=== PATIENT | female | born 1985 | race Caucasian/White ===

== ENCOUNTER 2019-05-29 16:41 | Emergency (ER) | payer BC, SELFPAY ==
[2019-05-29 16:43] VITALS: BP 167/107; PULSE 72; RESP 17; TEMP 36.6; O2SAT 99; BMI 40.1
--- NOTE | 2019-05-29 17:28 | ED_ITS ---
Entered by Anahi Davis, acting as scribe for Yandel Andradeud May 29, 2019 16:41 HPI - Abdominal Pain General: Chief Complaint: Abdominal Pain Stated Complaint: abd pain Time Seen by Provider: 05/29/19 17:15 Source: patient Mode of arrival: ambulatory Limitations: no limitations History of Present Illness: HPI narrative: 34 yo Female presents to ED with complaint of right upper quadrant abdominal pain. Pt states that this started about 3 days ago. Pt states she also has right flank pain. Pt states that the last time she ate or drank anything was about 10:40 today. She at a hotdog at school. MD elicited complaint: abdominal pain and flank pain Pertinent past history: none Onset (ago): day(s) (3) Pain Consistency: intermittent Location: RUQ and R flank Pain scale (0-10): 9 Radiation: back Migration to: no migration Exacerbating factors: nothing Relieving factors: nothing Associated Symptoms: Denies chills, diarrhea, dysuria, fever(s), heartburn, nausea and vomiting Review of Systems General: Reports: 10 or more systems reviewed and unremarkable except in HPI and below Const: Denies: fever or chills Eyes: Denies: change in vision, blurry vision or blind spots ENMT: Denies: throat pain, painful swallowing, hoarseness or mouth pain Card: Denies: chest pain, palpitations, irregular heart rhythm or swelling of feet/ankles Resp: Denies: shortness of breath, productive cough or non-productive cough GI: Reports: abdominal pain; Denies: nausea, vomiting, heartburn/indigestion or diarrhea : Reports: flank pain; Denies: difficulty urinating, painful urination, urinary frequency, urinary urgency or decreased urine ouput Musc: Reports: back pain; Denies: neck pain, extremity pain or extremity swelling Skin/Breast: Denies: rash, itching or redness Neuro: Denies: headache, numbness in extremities or weakness in extremities Endo: Denies: excessive urination, excessive thirst or tired all the time PFSH ED PFSH: Statuses (acute, chronic, etc) shown below reflect problem list status as previously entered and may not be historically accurate Social History Smoking and tobacco status: never smoked Physical Exam Const: COMMON NORMALS: average body habitus, oriented x3, no limitations, healthy appearing, alert and well nourished; apparent distress GENERAL APPEARANCE: in distress HENMT: COMMON NORMALS: normocephalic, head/scalp atraumatic, hearing grossly normal bilaterally, external ears normal, EAC's normal, TM's normal bilaterally, external nose normal, nasal mucous membranes and turbinates normal, moist oral mucous membranes, oropharynx normal, dentition normal and gingiva normal HEAD & SCALP: normocephalic and atraumatic NOSE: external nose normal and nasal mucous membranes and turbinates normal EXTERNAL EAR: Yes external ears normal EXTERNAL AUDITORY CANAL: EAC's normal TYMPANIC MEMBRANE: TM's normal bilaterally Eye: COMMON NORMALS: PERRL, EOMs intact bilaterally, conjunctivae normal, no scleral icterus, no papilledema, normal visual diaz by confrontation and fundi normal bilaterally CONJUNCTIVA: Yes conjunctivae normal PUPIL: Yes PERRL DIRECT OPHTHALMOSCOPY: Yes no papilledema and Yes fundi normal bilaterally Neck/C-Spine: COMMON NORMALS: full ROM, no lymphadenopathy, supple, no meningeal signs, no JVD, thyroid normal and no carotid bruits THYROID: thyroid normal Chest: COMMONS NORMALS: inspection of chest normal and palpation of chest normal Resp: COMMON NORMALS: normal respiratory effort, no retractions, no use of accessory muscles, clear to auscultation bilaterally and percussion normal AUSCULTATION: clear to auscultation bilaterally PERCUSSION: percussion normal Cardio: COMMON NORMALS: no JVD, regular rate, regular rhythm, S1 normal heart sound, S2 normal heart sound, no gallops, no clicks, no murmurs, no rub and p eripheral pulses 2+ throughout RATE: regular rate RHYTHM: regular rhythm HEART SOUNDS: S1 normal and S2 normal PERIPHERAL PULSES: pulses 2+ throughout GI: COMMON NORMALS: normal to inspection, nondistended, normoactive bowel sounds, soft to palpation, no hepatosplenomegaly, no masses and no bruits; negative for non-tender PALPATION: Yes soft, Yes tender Details: RUQ and Yes no hepatosplenomegaly : COMMON NORMALS: Yes no CVA tenderness BLADDER/KIDNEY EXAM: Yes no CVA tenderness Back/Pelvis: COMMON NORMALS: no CVA tenderness, thoracic and lumbar spine normal to inspection, no thoracic nor lumbar tenderness, thoraco-lumbar ROM normal and straight leg raise negative bilaterally Extremity: COMMON NORMALS: normal to inspection, full ROM, normal capillary refill, no joint enlargement, no clubbing, cyanosis or edema, no calf tenderness and no pedal edema Neuro: COMMON NORMALS: oriented x3 SENSORIUM/ORIENTATION: Yes alert MENI NGEAL SIGNS: Yes no meningeal signs Skin: COMMON NORMALS: no rashes or lesions noted, no wounds, skin turgor n ormal, no jaundice, no petechiae and no mottling GENERAL SKIN EXAM: no rashes or lesions noted and turgor normal Course Vital Signs: Vital signs: Vital Signs Temperature 97.8 F 05/29/19 16:43 Pulse Rate 72 05/29/19 16:43 Respiratory Rate 17 05/29/19 16:43 Blood Pressure 167/107 05/29/19 16:43 Pulse Oximetry 99 05/29/19 16:43 MDM - Abdominal Pain Lab Data: Labs: Lab Results 05/29/19 05/29/19 Range/Units 17:54 17:54 WBC 13.9 H (4.0-10.0) 10^3/ uL RBC 4.55 (4.1-5.3) 10^6/u L Hgb 13.0 (11.5-15.3) g/dL Hct 40.9 (37.0-47.0) % MCV 89.9 (81-99) fL MCH 28.6 (28.0-34.0) pg MCHC 31.8 (30.0-36.0) g/dL RDW 12.0 L (12.1-15.1) % Plt Count 253 (130-400) 10^3/c mm MPV 11.0 H (7.4-10.4) fL Neut % (Auto) 77.1 % Lymph % (Auto) 15.1 % [place] % (Auto) 3.9 % Eos % (Auto) 3.3 % Baso % (Auto) 0.4 % Neut # (Auto) 10.7 H (1.8-7.7) 10^3/u L Lymph # (Auto) 2.1 (0.8-4.8) 10^3/u L [place] # (Auto) 0.5 (0.2-0.9) 10^3/u L Eos # (Auto) 0.5 (0.0-0.8) 10^3/u L Baso # (Auto) 0.1 (0.0-0.1) 10^3/u L Nucleated RBC % (a uto) 0 % Nucleated RBCs # 0.0 /100WBC Sodium 139 (136-145) mmol/L Potassium 4.2 (3.5-5.1) mmol/L Chloride 102 (98-107) mmol/L Carbon Dioxide 26 (22-29) mmol/L Anion Gap 15.2 (5-19) BUN 10 (6-20) mg/dL Creatinine 0.9 (0.5-0.9) mg/dL GFR Calculation 71.7 L (90-130) mL/min Glucose 116 H (74-109) mg/dL Calcium 9.9 (8.6-10.0) mg/Dl Magnesium 2.1 (1.7-2.3) mg/dL Total Bilirubin 0.2 (0.15-1.2) mg/dL AST 41 H (0-32) U/L ALT 30 (0-33) U/L Alkaline Phosphata se 99 (35-105) IU/L Total Protein 7.5 (6.6-8.7) g/dL Albumin 4.1 (3.5-5.2) g/dL Globulin 3.4 (1.3-4.6) g/dL Lipase 31 (13-60) U/L Coding Level of Care Code ED Roll Scale Man for Chg Fwd Exam Problem Focused The documentation recorded by the Susan tatum Carmen, accurately reflects the service I personally performed and the decisions made by Raymond perez Daud May 29, 2019 16:41
[2019-05-29 18:12] LABS: Basophils # 0.1 10^3/uL (0.0-0.1); Basophils % 0.4 %; Eosinophils # 0.5 10^3/uL (0.0-0.8); Eosinophils % 3.3 %; Hematocrit 40.9 % (37.0-47.0); Lymphocytes # 2.1 10^3/uL (0.8-4.8); Lymphocytes % 15.1 %; Mean Corpuscular HGB Conc 31.8 g/dL (30.0-36.0); Mean Corpuscular Hemoglobin 28.6 pg (28.0-34.0); Mean Corpuscular Volume 89.9 fL (81-99); Monocytes # 0.5 10^3/uL (0.2-0.9); Monocytes % 3.9 %; Neutrophils # 10.7 10^3/uL (1.8-7.7); Neutrophils % 77.1 %; Nucleated Red Blood Cells % 0 %; Platelet Count 253 10^3/cmm (130-400); Red Blood Count 4.55 10^6/uL (4.1-5.3); White Blood Count 13.9 10^3/uL (4.0-10.0)
[2019-05-29 18:16] LABS: Alanine Aminotransferase 30 U/L (0-33); Albumin Level 4.1 g/dL (3.5-5.2); Alkaline Phosphatase 99 IU/L (35-105); Anion Gap 15.2 (5-19); Aspartate Amino Transferase 41 U/L (0-32); Blood Urea Nitrogen 10 mg/dL (6-20); Calcium 9.9 mg/Dl (8.6-10.0); Carbon Dioxide 26 mmol/L (22-29); Chloride 102 mmol/L (98-107); Globulin 3.4 g/dL (1.3-4.6); Glomerular Filtration Rate 71.7 mL/min (90-130); Glucose 116 mg/dL (74-109); Lipase 31 U/L (13-60); Magnesium 2.1 mg/dL (1.7-2.3); Potassium 4.2 mmol/L (3.5-5.1); Sodium 139 mmol/L (136-145); Total Bilirubin 0.2 mg/dL (0.15-1.2); Total Protein 7.5 g/dL (6.6-8.7)
[2019-05-29 18:36] LABS: HCG Qualitative Urine. Negative (Negative)
[2019-05-29 18:45] VITALS: BP 142/81; PULSE 68; RESP 16; O2SAT 100
[2019-05-29 18:56] VITALS: RESP 14
[2019-05-29] MEDS: morphine 4 mg/mL SDV 1 mL IVP (18:56)
[2019-05-29] MEDS: ondansetron 2 mg/ML SDV 2 mL 4 MG IVP (18:58)
[2019-05-29 19:16] LABS: Add Urine Microscopic? NO
[2019-05-29 19:22] LABS: Bilirubin Urine Neg (NEGATIVE); Blood Urine Neg (Negative); Glucose Urine UA Norm (Normal); Ketones Urine Negative (Negative); Leukocyte Esterase Urine Negative (Negative); Nitrate Urine Negative (Negative); Protein Urine Neg (Negative); Urine Appearance Clear (CLEAR); Urine Color Yellow (Yellow); Urobilinogen Urine Norm (Negative); pH Urine 6 (5-7)
--- NOTE | 2019-05-29 19:25 | CTR_ITS ---
PROCEDURE INFORMATION: Exam: CT Abdomen And Pelvis With Contrast Exam date and time: 05/29/2019 7:33 PM Age: 34 years old Clinical indication: Abdominal pain; Acute; Prior surgery; Surgery date: 6+ months; Surgery type: Shunt TECHNIQUE: Imaging protocol: Computed tomography of the abdomen and pelvis with intravenous contrast. Total DLP: 1598.57 mGy-cm Radiation optimization: All CT scans at this facility use at least one of these dose optimization techniques: automated exposure control; mA and/or kV adjustment per patient size (includes targeted exams where dose is matched to clinical indication); or iterative reconstruction. Contrast material: OMNI 300; Contrast volume: 95 ml; Contrast route: IV; COMPARISON: No relevant prior studies available. FINDINGS: Tubes, catheters and devices: A [employer]NAG[employer] shunt is noted which terminates in the right upper quadrant. Liver: Normal. No mass. Gallbladder and bile ducts: Normal. No calcified stones. No ductal dilation. Pancreas: Normal. No ductal dilation. Spleen: Normal. No splenomegaly. Adrenals: Normal. No mass. Kidneys and ureters: Normal. No hydronephrosis. Stomach and bowel: Unremarkable. No obstruction. No mucosal thickening. Appendix: The appendix is normal. Intraperitoneal space: Unremarkable. No free air. No significant fluid collection. Vasculature: Unremarkable. No abdominal aortic aneurysm. Lymph nodes: Unremarkable. No enlarged lymph nodes. Bladder: Unremarkable as visualized. Reproductive: The uterus and ovaries appear normal. Bones/joints: Unremarkable. No acute fracture. Soft tissues: Unremarkable. CT/CT abdomen pelvis w con* [id number] IMPRESSION: No acute abnormality is seen in the abdomen or pelvis. Radiation Dose CTDIVOL = (mGy): DLP = 1598.57 (mGy-cm)
[2019-05-29] MEDS: sodium chloride 0.9% 1,000 ML 999 ML IV (19:37)
[2019-05-29] MEDS: iohexol 300 mg/mL 100 mL Btl 95 ML IV (20:01)
[2019-05-29 20:31] VITALS: BP 133/78; PULSE 76; RESP 16; TEMP 36.4; O2SAT 96
[2019-05-29 21:12] VITALS: BP 129/77; PULSE 82; RESP 16; O2SAT 97
[2019-05-29 21:37] VITALS: BP 111/84; PULSE 62; RESP 17; O2SAT 100
== END 2019-05-29 21:41 | disposition home or self-care (01) ==
PROVIDERS: Emergency Provider Emergency Medicine; Family Provider Electrodiagnostic Medicine; PCP Electrodiagnostic Medicine
DX: R10.9 Unspecified abdominal pain (principal)
CPT/HCPCS: 74177; 80053; 81003; 81025; 83690; 83735; 85025; 96360; 96361; 96374; 99282; A9270; J2270; J2405; J7030; Q9967

== ENCOUNTER 2019-06-17 06:54 | Outpatient (CLI) | payer BC, SELFPAY ==
--- NOTE | 2019-06-17 07:02 | US_ITS ---
WS: [id number] Complete ABDOMINAL ULTRASOUND HISTORY: RUQ PAIN COMPARISON: CT 05/29/2019 Liver: 16.0 cm in length. Liver is normal size and echogenicity with no mass or intrahepatic dilatati on. Gallbladder: Focal areas of increased echogenicity without shadowing in the gallbladder lumen. May be a prominent fold or sludge or nonshadowing stones. Similar findings were noted on the CT on 0. Gallbladder wall thickness: 2.0 mm. Pancreas: Normal size and echogenicity. CBD: 3.0 mm. Right kidney: 10.7 cm x 6.6 cm x 5.1 cm. No mass, cortical thickening or hydronephrosis. Left kidney: 11.6 cm x 4.4 cm x 3.8 cm. No mass, cortical thickening or hydronephrosis. Spleen: Normal size and echogenicity. Abdominal aorta and IVC are within normal limits. No ascites. US/US abdomen complete* [id number] IMPRESSION: 1. Increased echogenicity in the neck of the gallbladder. Differential include s small amount of sludge, septation or nonshadowing stones. No evidence for acu te cholecystitis. 2. No biliary duct dilatation.
== END 2019-06-17 06:55 | disposition home or self-care (01) ==
LOC: US 06:58
PROVIDERS: Family Provider Electrodiagnostic Medicine; PCP Electrodiagnostic Medicine; Visit Provider Electrodiagnostic Medicine
DX: R10.11 Right upper quadrant pain (principal)
CPT/HCPCS: 76700

== ENCOUNTER 2019-07-10 09:15 | Day surgery (SDC) | payer BC, SELFPAY ==
[2019-07-09 12:42] VITALS: BMI 40.3
[2019-07-10] VITALS (8 sets, daily range): BP systolic 112–179; BP diastolic 64–102; PULSE 58–87; RESP 14–20; TEMP 36.4–36.6; O2SAT 95–100
[2019-07-10 10:15] LABS: OR HCG Qualitative Urine Negative (Negative)
[2019-07-10] MEDS: sodium chloride 0.9% 1,000 ML 30 ML IV (10:35)
--- NOTE | 2019-07-10 10:53 | W.PM.OPSUD ---
Surgery/Procedure H&P Update DATE OF PROCEDURE: July 10, 2019 DATE H&P PERFORMED: 07/08/19 PLANNED PROCEDURE: Operation Date: 07/10/19 14:10 Proposed Procedures p Laparoscopic Poss open Cholecystectomy(Not Applicable) - Enrique Crane MD
--- NOTE | 2019-07-10 11:08 | ANES.PREANE2 ---
Pre-Anesthetic Assessment Pre-Anesthetic Assessment: Height/Weight: Height 1.63 m Weight 106.594 kg Temp Pulse Resp BP Pulse Ox 97.6 F 62 16 179/102 100 07/10/19 10:14 07/10/19 10:14 07/10/19 10:14 07/10/19 10:14 07/10/19 10:14 Preop Diagnosis: gallstones Proposed Procedure: Operation Date: 07/10/19 14:10 Proposed Procedures p Laparoscopic Poss open Cholecystectomy(Not Applicable) - Enrique Crane MD Familial anesthetic complications: None Was Beta Charlotte taken within 24 hours: N/A Last intake: Intake Last Liquid Date 07/09/19 Last Liquid Time 18:30 Last Solid Date 07/09/19 Last Solid Time 18:30 Social: Social History: No alcohol and No tobacco Exam: Pre-Anes Outpt Exam: alert, oriented x 3, clear to auscultation bilaterally and regular rate & rhythm Airway: Cervical ROM: WNL MP: 2 Dentition: Full Pulmonary: Pulmonary: None reported CV/HEM: CV/HEM: None reported : : None reported Hepatic: Hepatic: None reported GI: GI: GERD Comments: currently nauseated Metabolic: Metabolic: Morbid obesity Musc/skel: Musc/skel: None reported Neuropsych: Neuropsych: None reported Anesthetic Plan: ASA status: 2 Anesthesia: General Other: RSI for nausea Risk of > 500 ml blood loss (7ml/kg in children): No Meds/Allergies Current Medications: Current Medications Generic Name Dose Route Start Last Admin Trade Name Freq PRN Reason Stop Dose Admin Sodium Chloride 1,000 mls @ 30 ml s/hr 07/10/19 10:15 07/10/19 10:35 Sodium Chloride 0.9% IV 07/11/19 10:14 30 mls/hr .Q24H NELIA Administration PFSH Anesthesia PFSH: Social History Smoking and tobacco status: never smoked Female Reproductive History: Date of last menstrual period: 07/04/19 Data Anesthesia Other Labs: Laboratory Results - last 48 hr 07/10/19 10:07 Urine HCG, Qual Negative Cardiac Studies: No Data to Display
[2019-07-10 12:23] LABS: Alanine Aminotransferase 17 U/L (0-33); Albumin Level 4.2 g/dL (3.5-5.2); Alkaline Phosphatase 90 IU/L (35-105); Aspartate Amino Transferase 16 U/L (0-32); Globulin 3.9 g/dL (1.3-4.6); Total Bilirubin 0.3 mg/dL (0.15-1.2); Total Protein 8.1 g/dL (6.6-8.7)
--- NOTE | 2019-07-10 13:24 | P.OP_ITS ---
Operative Report Date of procedure: July 10, 2019 Pre-op Diagnosis: Symptomatic cholelithiasis. Post-op diagnosis: same Procedure Done: Laparoscopic cholecystectomy. Specimens removed/disposition: Gallbladder. Surgeon: Enrique Crane Anesthesia: General Estimated blood loss (mL): 10 Complications: None. Condition: stable Disposition: PACU Procedure: The patient was brought to the Operating Room and was placed in a supine position on the Operating Room table. General endotracheal anesthesia was induced. The abdomen was prepped and draped in a sterile fashion. A small vertical incision was carried out in the inferior aspect of the umbilicus. Blunt dissection was carried out down to the fascia, which was grasped with a Lexus clamp. A stay suture of 0 Vicryl was placed on either side of the midline and the midline fascia was incised. The underlying peritoneum was opened bluntly and the Clementine port was placed directly into the peritoneal cavity and was held in place with the inflatable balloon. The peritoneal cavity was insufflated with carbon dioxide. The laparoscope was used to inspect the abdominal cavity. The patient's colon and omentum were stuck up on the anterior abdominal wall. A 5 millimeter port was placed in the right mid abdomen below the area of adhesions under direct vision. Blunt dissection was then began and the omentum and colon were taken off of the anterior abdominal wall in the right upper quadrant. Eventually a second 5 mm port was placed on the right mid abdomen where some of the adhesions had been taken down and further dissection was carried out into the right upper quadrant. Eventually the liver and gallbladder were easily identified. The patient's ventriculoperitoneal shunt was also in the right upper quadrant and w as freed from the area of dissection. Finally, a third 5 mm port was placed in the right side of the epigastrium after the adhesions been taken down. The gallbladder was grasped and was elevated. The patient had some adhesions to the fundus which were taken down using blunt dissection with some cautery to maintain hemostasis. Dissection was carried out in the infundibular region of the gallbladder and the cystic duct and cystic artery were identified. The gallbladder was partially removed from the liver bed using cautery and the spatula to confirm the anatomy before the structures were clipped and divided. The gallbladder was then removed from the liver bed using cautery and the spatula. After the gallbladder had been removed from the liver bed, the laparoscope was moved to the epigastric port and the gallbladder was removed from the peritoneal cavity through the umbilical port site. The stay sutures of Vicryl were tied to each other at the umbilicus, closing the defect so that it was airtight. The perihepatic spaces were irrigated with saline and the liver bed was reinspected. No ongoing problems were seen. The remaining ports were removed from the abdominal wall and the pne umoperitoneum was evacuated. All skin incisions were closed using inverted interrupted sutures of 4-0 Vicryl. Benzoin and Steri-Strips were placed over the incisions and Band-Aids followed. The patient was taken to the Recovery Area in stable condition postoperatively.
== END 2019-07-10 15:30 | disposition home or self-care (01) ==
PROVIDERS: Anesthesiology; Family Provider Electrodiagnostic Medicine; PCP Electrodiagnostic Medicine; Visit Provider Surgery
PROC: 0FT44ZZ Resection of Gallbladder, Percutaneous Endoscopic Approach (ICD-10-PCS; CPT 47562; principal; 2019-07-10 11:55)
DX: K80.10 Calculus of gallbladder with chronic cholecystitis without obstruction (principal); Z82.49 Family history of ischemic heart disease and other diseases of the circulatory system; Z83.3 Family history of diabetes mellitus; K21.9 Gastro-esophageal reflux disease without esophagitis; E66.01 Morbid (severe) obesity due to excess calories; Z68.41 Body mass index [BMI] 40.0-44.9, adult
CPT/HCPCS: 47562; 12345; 36415; 80076; 81025; 84703; 88304; 96365; J0690; J1100; J1885; J2001; J2405; J2710; J3010; J3490; J7030

== ENCOUNTER 2019-07-25 11:19 | Emergency (ER) | payer BC, SELFPAY ==
[2019-07-25 11:23] VITALS: BP 154/90; PULSE 77; RESP 16; TEMP 36.7; O2SAT 99; BMI 40.3
--- NOTE | 2019-07-25 11:28 | ED_ITS ---
HPI - Abdominal Pain General: Chief Complaint: Abdominal Pain Stated Complaint: abd pain Time Seen by Provider: 07/25/19 11:28 Source: patient and family Mode of arrival: ambulatory Limitations: no limitations History of Present Illness: HPI narrative: Patient is a 34-year-old female who presents to ED today along with her for complaints of right upper quadrant pain that began fairly abruptly today. Patient states she underwent an elective cholecystectomy by Dr. Crane approximately 2 weeks ago. Patient and state since the procedure patient has been doing very well and has not had any issues. They have had their follow-up appointment with Dr. Crane which went well. She states while at work today she began developing right upper quadrant pain that feels almost identical to her previous gallbladder pain. She is having nausea without vomiting. She has not been running fevers. She states pain seems to radiate into her back and chest. MD elicited complaint: abdominal pain Pertinent past history: other (recent cholecystectomy) Location: RUQ Severity: moderate Radiation: back and chest Exacerbating factors: other (deep inhalation ) Relieving factors: nothing Associated Symptoms: Reports nausea; Denies change in bowel habits, change in stool character, chills, diarrhea, dys uria, fever(s), hematochezia, syncope and vomiting Related Data: Date of Last Menstrual Period: 07/10/19 Review of Systems Const: Denies: fever, chills, body aches, change in appetite, change in weight, fatigue or malaise Eyes: Denies: change in vision or blurry vision Card: Denies: chest pain, palpitations, irregular heart rhythm, edema, swelling of feet/ankles, lightheadedness, syncope or pre-syncope Resp: Reports: pain on inspiration; Denies: shortness of breath, productive cough, coughing up blood or chest congestion GI: Reports: abdominal pain and nausea; Denies: vomiting, diarrhea, change in bowel habits, change in stool character, blood in stool, white/light colored stool or fatty stool : Denies: flank pain, difficulty urinating, painful urination, urinary frequency, urinary urgency or urinary hesitancy Musc: Reports: back pain; Denies: neck pain Skin/Breast: Denies: rash Neuro: Denies: headache, numbness in extremities, weakness in extremities or changes in sensation PFS ED PFSH: Social History Smoking and tobacco status: never smoked Female Reproductive History: Date of last menstrual period: 07/10/19 Physical Exam Const: COMMON NORMALS: average body habitus, oriented x3, no limitations, healthy appearing, alert and well nourished GENERAL APPEARANCE: cooperative and in distress (appears in discomfort ) HENMT: COMMON NORMALS: normocephalic and head/scalp atraumatic HEAD & SCALP: normocephalic and atraumatic Chest: OTHER: TTP posterior chest wall R>L Resp: COMMON NORMALS: normal respiratory effort and clear to auscultation bilaterally AUSCULTATION: clear to auscultation bilaterally Cardio: COMMON NORMALS: regular rate and regular rhythm RATE: regular rate RHYTHM: regular rhythm GI: COMMON NORMALS: normal to inspection, nondistended, normoactive bowel sounds, soft to palpation and no masses PALPATION: Yes soft and Yes tender Details: RUQ OTHER: surgical incisions look clean and infection free : COMMON NORMALS: Yes no CVA tenderness BLADDER/KIDNEY EXAM: Yes no CVA tenderness Back/Pelvis: COMMON NORMALS: no CVA tenderness Extremity: COMMON NORMALS: normal to inspection Neuro: COMMON NORMALS: oriented x3 SENSORIUM/ORIENTATION: Yes alert Skin: COMMON NORMALS: no rashes or lesions noted and no jaundice GENERAL SKIN EXAM: no rashes or lesions noted Course Consultations: Consultation #1: Had sr community manager contact [facility] who informed us that they do not have anyone websphere commerce consultant available for an ERCP at this time Consultation #2: Spoke to Linsey Muir PA-C at [facility] who will speak to her attending and call me back called back after speaking to her attending and stated at this point they would most likely monitor labs/repeat labs and if trending upward then would go ahead and proceed with ERCP Consultation #3: Spoke to hospitalist, Dr. Iverson at [facility] who accepts admit. [facility] will call back with bed number for patient. Vital Signs: Vital signs: Vital Signs Temperature 98.1 F 07/25/19 11:23 Pulse Rate 80 07/25/19 13:33 Respiratory Rate 16 07/25/19 13:33 Blood Pressure 133/90 07/25/19 13:33 Pulse Oximetry 97 07/25/19 13:33 MDM - Abdominal Pain Lab Data: Labs: Lab Results 07/25/19 07/25/19 07/25/19 Range/Units 11:38 11:38 11:38 WBC 6.7 (4.0-10.0) 10^3/ uL RBC 5.06 (4.1-5.3) 10^6/u L Hgb 14.1 (11.5-15.3) g/dL Hct 43.6 (37.0-47.0) % MCV 86.2 (81-99) fL MCH 27.9 L (28.0-34.0) pg MCHC 32.3 (30.0-36.0) g/dL RDW 11.6 L (12.1-15.1) % Plt Count 223 (130-400) 10^3/c mm MPV 10.7 H (7.4-10.4) fL Neut % (Auto) 77.6 % Lymph % (Auto) 13.0 % [place] % (Auto) 5.5 % Eos % (Auto) 3.3 % Baso % (Auto) 0.3 % Neut # (Auto) 5.2 (1.8-7.7) 10^3/u L Lymph # (Auto) 0.9 (0.8-4.8) 10^3/u L [place] # (Auto) 0.4 (0.2-0.9) 10^3/u L Eos # (Auto) 0.2 (0.0-0.8) 10^3/u L Baso # (Auto) 0.0 (0.0-0.1) 10^3/u L Nucleated RBC % (a uto) 0 % Nucleated RBCs # 0.0 /100WBC Sodium 137 (136-145) mmol/L Potassium 3.6 (3.5-5.1) mmol/L Chloride 101 (98-107) mmol/L Carbon Dioxide 23 (22-29) mmol/L Anion Gap 16.6 (5-19) BUN 8 (6-20) mg/dL Creatinine 0.8 (0.5-0.9) mg/dL GFR Calculation 82.1 L (90-130) mL/min Glucose 119 H (65-115) mg/dL Calculated Osmolal ity 281 L (285-295) mOsm/k g Calcium 9.0 (8.5-10.5) mg/dL Total Bilirubin 0.7 (0.15-1.2) mg/dL AST 67 H (0-32) U/L ALT 36 H (0-33) U/L Alkaline Phosphata se 130 H (35-105) IU/L Total Protein 7.7 (6.6-8.7) g/dL Albumin 4.3 (3.5-5.2) g/dL Globulin 3.4 (1.3-4.6) g/dL Lipase 481 H (13-60) U/L HCG, Qual Negative (Negative) Urine Color (Yellow) Urine Appearance (CLEAR) Urine pH (5-7) Ur Specific Gravit y (1.005-1.030) Urine Protein (Negative) Urine Glucose (UA) (Normal) Urine Ketones (Negative) Urine Blood (Negative) Urine Nitrate (Negative) Urine Bilirubin (NEGATIVE) Urine Urobilinogen (Negative) mg/dL Ur Leukocyte Kathi ase (Negative) Urine RBC (0-2) /hpf Urine WBC (0-5) /hpf Ur Squamous Epith Cells (0-5) Urine Bacteria (NONE) 07/25/19 Range/Units 11:57 WBC (4.0-10.0) 10^3/ uL RBC (4.1-5.3) 10^6/u L Hgb (11.5-15.3) g/dL Hct (37.0-47.0) % MCV (81-99) fL MCH (28.0-34.0) pg MCHC (30.0-36.0) g/dL RDW (12.1-15.1) % Plt Count (130-400) 10^3/c mm MPV (7.4-10.4) fL Neut % (Auto) % Lymph % (Auto) % [place] % (Auto) % Eos % (Auto) % Baso % (Auto) % Neut # (Auto) (1.8-7.7) 10^3/u L Lymph # (Auto) (0.8-4.8) 10^3/u L [place] # (Auto) (0.2-0.9) 10^3/u L Eos # (Auto) (0.0-0.8) 10^3/u L Baso # (Auto) (0.0-0.1) 10^3/u L Nucleated RBC % (a uto) % Nucleated RBCs # /100WBC Sodium (136-145) mmol/L Potassium (3.5-5.1) mmol/L Chloride (98-107) mmol/L Carbon Dioxide (22-29) mmol/L Anion Gap (5-19) BUN (6-20) mg/dL Creatinine (0.5-0.9) mg/dL GFR Calculation (90-130) mL/min Glucose (65-115) mg/dL Calculated Osmolal ity (285-295) mOsm/k g Calcium (8.5-10.5) mg/dL Total Bilirubin (0.15-1.2) mg/dL AST (0-32) U/L ALT (0-33) U/L Alkaline Phosphata se (35-105) IU/L Total Protein (6.6-8.7) g/dL Albumin (3.5-5.2) g/dL Globulin (1.3-4.6) g/dL Lipase (13-60) U/L HCG, Qual (Negative) Urine Color Yellow (Yellow) Urine Appearance Sl hazy (CLEAR) Urine pH 5 (5-7) Ur Specific Gravit y 1.020 (1.005-1.030) Urine Protein Trace (Negative) Urine Glucose (UA) Norm (Normal) Urine Ketones 1+ H (Negative) Urine Blood Neg (Negative) Urine Nitrate Negative (Negative) Urine Bilirubin 1+ H (NEGATIVE) Urine Urobilinogen 4 H (Negative) mg/dL Ur Leukocyte Kathi ase Negative (Negative) Urine RBC None (0-2) /hpf Urine WBC 0-4 H (0-5) /hpf Ur Squamous Epith Cells 15-25 H (0-5) Urine Bacteria 2+ H (NONE) Imaging Data ^: CXR: Radiologist's impression: [address] [address] XRay Report Signed Patient: Marlyn Palomo Unit #: [id number] : 1985 Acct#:[id number] Age/Sex: 34 / F ADM Date: 07/25/19 Loc: ER Room/Bed: Attending Dr: Ordering Provider/Ordering MD: Lianne Malone Date of Service: 07/25/19 Procedure(s): XR chest 1V portable [id number] Accession Number(s): [id number] Report Number: [id number] WS: [id number] CHEST XRAY TECHNIQUE: Portable chest. CLINICAL INFORMATION: cough/congestion COMPARISON: March 05, 2017 FINDINGS: Shunt tubing projected over the right hemithorax. Heart: Normal cardiac silhouette. Lungs: Lungs are clear. No consolidation or pleural effusion. Bones: Normal visualized bony structures. XR/XR chest 1V portable [id number] IMPRESSION: Shunt tubing projected over the right hemithorax. Chest otherwise normal. Dictated By: Camden Saleem MD Signed By: Camden Saleem MD Signed Date/Time: 07/25/191223 DD/ 122 US abdomen : Radiologist's impression: [place] [address] Ultrasound Report Signed Patient: Marlyn Palomo Unit #: [id number] : 1985 Age/Sex: 34 / F ADM Date: 07/25/19 Loc: ER Room/Bed: Attending Dr: Ordering Provider/Ordering MD: Lianne Malone Date of Service: 07/25/19 Procedure(s): US abdomen limited [id number] Accession Number(s): [id number] Report Number: [id number] WS: [id number] Right upper quadrant ultrasound, 07/25/2019 Clinical Data: RUQ pain; elevated LFTs; recent codie Comparison: Right upper quadrant ultrasound, 07/07/2019. Findings: The gallbladder is absent. The common bile duct is 0.57 cm and there are no intrahepatic ductal abnormalities. Liver shows no cysts, masses or dilated intrahepatic ducts. The pancreas is not obscured by overlying bowel gas, and no cyst, pseudocyst, or evidence of pancreatitis is noted. Right kidney measures 3.84 x 4.21 x 9.95 cm and no cyst, masses or hydronephrosis can be seen. The aorta and inferior vena cava show no vascular abnormalities. US/US abdomen limited [id number] Impression: 1. Absent gallbladder. 2. Negative for acute right upper quadrant abnormalities. 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
--- NOTE | 2019-07-25 11:37 | XR_ITS ---
WS: [id number] CHEST XRAY TECHNIQUE: Portable chest. CLINICAL INFORMATION: cough/congestion COMPARISON: March 05, 2017 FINDINGS: Shunt tubing projected over the right hemithorax. Heart: Normal cardiac silhouette. Lungs: Lungs are clear. No consolidation or pleural effusion. Bones: Normal visualized bony structures. XR/XR chest 1V portable [id number] IMPRESSION: Shunt tubing projected over the right hemithorax. Chest otherwise normal.
[2019-07-25 11:41] VITALS: BP 170/86; PULSE 77; RESP 18; O2SAT 96
[2019-07-25 11:46] LABS: Basophils % 0.3 %; Eosinophils # 0.2 10^3/uL (0.0-0.8); Eosinophils % 3.3 %; Hematocrit 43.6 % (37.0-47.0); Hemoglobin 14.1 g/dL (11.5-15.3); Lymphocytes # 0.9 10^3/uL (0.8-4.8); Mean Corpuscular HGB Conc 32.3 g/dL (30.0-36.0); Mean Corpuscular Hemoglobin 27.9 pg (28.0-34.0); Mean Corpuscular Volume 86.2 fL (81-99); Mean Platelet Volume 10.7 fL (7.4-10.4); Monocytes # 0.4 10^3/uL (0.2-0.9); Monocytes % 5.5 %; Neutrophils # 5.2 10^3/uL (1.8-7.7); Neutrophils % 77.6 %; Nucleated Red Blood Cells % 0 %; Platelet Count 223 10^3/cmm (130-400); Red Blood Count 5.06 10^6/uL (4.1-5.3); Red Cell Distribution Width 11.6 % (12.1-15.1); White Blood Count 6.7 10^3/uL (4.0-10.0)
[2019-07-25 11:48] VITALS: RESP 18; O2SAT 96
[2019-07-25] MEDS: ondansetron 2 mg/ML SDV 2 mL 4 MG IVP (11:48)
[2019-07-25] MEDS: morphine 4 mg/mL SDV 1 mL IVP (11:48)
[2019-07-25 11:58] LABS: HCG, Serum Qual Negative (Negative)
[2019-07-25 12:05] LABS: Alanine Aminotransferase 36 U/L (0-33); Albumin Level 4.3 g/dL (3.5-5.2); Alkaline Phosphatase 130 IU/L (35-105); Anion Gap 16.6 (5-19); Aspartate Amino Transferase 67 U/L (0-32); Blood Urea Nitrogen 8 mg/dL (6-20); Carbon Dioxide 23 mmol/L (22-29); Chloride 101 mmol/L (98-107); Globulin 3.4 g/dL (1.3-4.6); Glomerular Filtration Rate 82.1 mL/min (90-130); Glucose 119 mg/dL (65-115); Osmolality Calculated 281 mOsm/kg (285-295); Potassium 3.6 mmol/L (3.5-5.1); Sodium 137 mmol/L (136-145); Total Bilirubin 0.7 mg/dL (0.15-1.2); Total Protein 7.7 g/dL (6.6-8.7)
[2019-07-25 12:22] LABS: Blood Urine Neg (Negative); Glucose Urine UA Norm (Normal); Ketones Urine 1+ (Negative); Nitrate Urine Negative (Negative); Protein Urine Trace (Negative); Urine Appearance SL Hazy (CLEAR); Urine Color Yellow (Yellow); pH Urine 5 (5-7)
[2019-07-25 12:23] LABS: Add Urine Microscopic? YES; Bilirubin Urine 1+ (NEGATIVE); Leukocyte Esterase Urine Negative (Negative); Urobilinogen Urine 4 mg/dL (Negative)
[2019-07-25 12:25] LABS: Add Urine Culture? No; Bacteria Urine 2+; Squamous Epithelial Cell Urine 15-25 (0-5); WBC Urine 0-4 /hpf (0-5)
[2019-07-25 12:26] LABS: Lipase 481 U/L (13-60)
--- NOTE | 2019-07-25 12:36 | US_ITS ---
WS: [id number] Right upper quadrant ultrasound, 07/25/2019 Clinical Data: RUQ pain; elevated LFTs; recent codie Comparison: Right upper quadrant ultrasound, 07/07/2019. Findings: The gallbladder is absent. The common bile duct is 0.57 cm and there are no intrahepatic ductal abnor malities. Liver shows no cysts, masses or dilated intrahepatic ducts. The pancreas is not obscured by overlying bowel gas, and no cyst, pseudocyst, or evidence of pancreat itis is noted. Right kidney measures 3.84 x 4.21 x 9.95 cm and no cyst, masses or hydronephrosis can be seen. The aorta and inferior vena cava show no vascular abnormalities. US/US abdomen limited [id number] Impression: 1. Absent gallbladder. 2. Negative for acute right upper quadrant abnormalities.
[2019-07-25] MEDS: sodium chloride 0.9% 1,000 ML 999 ML IV (12:40)
[2019-07-25 12:41] VITALS: BP 142/105; PULSE 91; RESP 16; O2SAT 97
--- NOTE | 2019-07-25 12:42 | PC.NURSE ---
US at bedside
[2019-07-25 13:33] VITALS: BP 133/90; PULSE 80; RESP 16; O2SAT 97
[2019-07-25 18:43] VITALS: BP 122/90; PULSE 70; RESP 16; O2SAT 97
--- NOTE | 2019-07-25 19:46 | PC.NURSE ---
3B called, notified departure from C
== END 2019-07-25 19:46 | disposition other institution (70) ==
PROVIDERS: Emergency Provider Physician Assistant; Family Provider Electrodiagnostic Medicine; PCP Electrodiagnostic Medicine
DX: R79.89 Other specified abnormal findings of blood chemistry (principal); R74.8 Abnormal levels of other serum enzymes; Z90.49 Acquired absence of other specified parts of digestive tract
CPT/HCPCS: 12345; 36415; 71045; 76705; 80053; 81001; 83690; 84703; 85025; 96360; 96361; 96374; 96375; 99283; 99285; A9270; J2270; J2405; J7030

== ENCOUNTER 2020-03-03 08:46 | Outpatient (CLI) | payer BC, SELFPAY ==
--- NOTE | 2020-03-03 08:49 | US_ITS ---
WS: [id number] ULTRASOUND PELVIS TECHNIQUE: Transabdominal. CLINICAL INFORMATION: MENORRHAGIA, PELVIC AND PERINEAL PAIN, ANEMIA : No. COMPARISON: None. FINDINGS: Uterus Orientation: Anteverted. Size: 8.0 cm x 6.1 cm x 4.5 cm Masses: None. Cervix: Normal Endometrium: Thickened Endometrium thickness: 1.7 cm. Adnexa: Normal. Right ovary size: 2.6 cm x 2.1 cm x 1.6 cm. Right ovary volume: 4.5 ccm3 Left ovary size: 3.1 cm x 2.3 cm x 2.0 cm. Left ovary volume: 7.4 ccm3 Free fluid: None. Other findings: None. US/US pelvic complete* [id number] IMPRESSION: 1. Uterus is normal in appearance. Thickened endometrium measuring 17 mm. 2. Ovaries are normal in appearance. 3. No free fluid in the cul-de-sac. 4. No adnexal masses.
== END 2020-03-03 08:47 | disposition home or self-care (01) ==
LOC: US 08:46
PROVIDERS: PCP Electrodiagnostic Medicine; Visit Provider Electrodiagnostic Medicine
DX: N92.0 Excessive and frequent menstruation with regular cycle (principal); R10.2 Pelvic and perineal pain; D64.9 Anemia, unspecified; R93.89 Abnormal findings on diagnostic imaging of other specified body structures
CPT/HCPCS: 76856

== ENCOUNTER → 2020-04-21 14:55 | Outpatient (BNVA) | payer BC, SELFPAY | PROVIDERS: PCP Electrodiagnostic Medicine; Visit Provider Obstetrics & Gynecology | DX: Z12.4 Encounter for screening for malignant neoplasm of cervix (principal); Z01.812 Encounter for preprocedural laboratory examination | CPT/HCPCS: 88175; 88305 ==

== ENCOUNTER → 2020-05-26 14:55 | Outpatient (BNVA) | payer BC, SELFPAY | PROVIDERS: PCP Electrodiagnostic Medicine; Visit Provider Obstetrics & Gynecology | DX: Z11.59 Encounter for screening for other viral diseases (principal); N92.0 Excessive and frequent menstruation with regular cycle | CPT/HCPCS: 87635 ==

== ENCOUNTER 2020-06-01 07:06 | Day surgery (SDC) | payer BC, SELFPAY ==
[2020-05-28 11:36] VITALS: BMI 38.7
[2020-05-28 12:08] LABS: Basophils % 0.5 %; Eosinophils # 0.2 10^3/uL (0.0-0.8); Eosinophils % 2.7 %; Hematocrit 43.8 % (37.0-47.0); Hemoglobin 13.6 g/dL (11.5-15.3); Lymphocytes # 2.3 10^3/uL (0.8-4.8); Lymphocytes % 27.2 %; Mean Corpuscular HGB Conc 31.1 g/dL (30.0-36.0); Mean Corpuscular Hemoglobin 26.2 pg (28.0-34.0); Mean Corpuscular Volume 84.2 fL (81-99); Mean Platelet Volume 10.6 fL (7.4-10.4); Monocytes # 0.4 10^3/uL (0.2-0.9); Monocytes % 4.8 %; Neutrophils # 5.54 10^3/uL (1.8-7.7); Neutrophils % 64.7 %; Nucleated Red Blood Cells % 0 %; Platelet Count 263 10^3/cmm (130-400); Red Cell Distribution Width 12.3 % (12.1-15.1); White Blood Count 8.6 10^3/uL (4.0-10.0)
--- NOTE | 2020-05-28 13:04 | P.ANESASSM_ITS ---
Pre-Anesthetic Assessment Pre-Anesthetic Assessment: Height/Weight: Height 1.63 m Weight 102.512 kg Preop Diagnosis: Symptomatic cholelithiasis. Proposed Procedure: Operation Date: 06/01/20 09:55 Proposed Procedures p Hysteroscopy/endometrial ablation w/ Myosure 66137 n92.0(Not Applicable) - Edgardo Johnson MD Was Beta Charlotte taken within 24 hours: N/A Social: Social History: No alcohol and No tobacco Exam: Pre-Anes Outpt Exam: alert, oriented x 3, clear to auscultation bilaterally and regular rate & rhythm Airway: Submandibular: WNL Cervical ROM: WNL MP: 2 Dentition: Full Metabolic: Metabolic: Morbid obesity Neuropsych: Neuropsych: Anxiety Anesthetic Plan: ASA status: 2 Anesthesia: General Risk of > 500 ml blood loss (7ml/kg in children): No PFSH Anesthesia PFSH: Medical History Anxiety 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 Surgical History H/O elbow surgery (~03/2018) Left elbow surgery?[facility]. S/P dilation and curettage (~2003) S/P laparoscopic cholecystectomy (~06/2019) Dr. Crane at [facility] [place]. S/P C[employer]IEF shunt (~03/1985) S/P wisdom tooth extraction Family History Father Hypertension Grandmother Diabetes Paternal Hypertension Maternal and Paternal Breast cancer Maternal Grandfather Diabetes Maternal Hypertension Maternal Social History (Updated 05/28/20 @ 07:59 by Edgardo Johnson MD) Smoking and tobacco status: never smoked Alcohol intake: never Substance/Drug Use: never Female Reproductive History: Date of last menstrual period: 05/09/20 Data Anesthesia CBC & Chem 7: 05/28/20 11:58 Other Labs: Laboratory Results - last 48 hr 05/28/20 11:58 WBC 8.6 RBC 5.20 Hgb 13.6 Hct 43.8 MCV 84.2 MCH 26.2 L MCHC 31.1 RDW 12.3 Plt Count 263 MPV 10.6 H Neut % (Auto) 64.7 Lymph % (Auto) 27.2 [place] % (Auto) 4.8 Eos % (Auto) 2.7 Baso % (Auto) 0.5 Neut # (Auto) 5.54 Lymph # (Auto) 2.3 [place] # (Auto) 0.4 Eos # (Auto) 0.2 Baso # (Auto) 0.0 Nucleated RBC % (auto) 0 Nucleated RBCs # 0.0 Cardiac Studies: No Data to Display
[2020-06-01 07:23] VITALS: BP 140/89; PULSE 68; RESP 18; TEMP 36.4; O2SAT 100
[2020-06-01] MEDS: ketorolac 30 mg/mL INJ IVP (07:35)
[2020-06-01] MEDS: sodium chloride 0.9% 1,000 ML 30 ML IV (08:00)
[2020-06-01 08:25] LABS: OR HCG Qualitative Urine Negative (Negative)
--- NOTE | 2020-06-01 09:22 | W.PM.OPSUD ---
Surgery/Procedure H&P Update DATE OF PROCEDURE: June 01, 2020 DATE H&P PERFORMED: 05/28/20 H&P UPDATE INFORMATION: I have reviewed H&P completed within last 30 days, I have examined patient prior to procedure, No changes to prior documentation and H&P is in [facility] [place] on date indicated PREOP DIAGNOSIS: Menorrhagia PLANNED PROCEDURE: Operation Date: 06/01/20 08:30 Proposed Procedures p Hysteroscopy/endometrial ablation w/ Myosure 43792 n92.0(Not Applicable) - Edgardo Johnson MD
--- NOTE | 2020-06-01 09:30 | P.ANESUD_ITS ---
Pre-Anesthetic Update Pre-Anesthetic Assessment: Date of Surgery/Procedure: 06/01/20 Preop Ananya gnosis: Menorrhagia Proposed Procedure: Operation Date: 06/01/20 08:30 Proposed Procedures p Hysteroscopy/endometrial ablation w/ Myosure 59557 n92.0(Not Applicable) - Edgardo Johnson MD Any changes to Pre-Anesthetic Assessment?: No Last Intake: Intake Last Liquid Date 05/31/20 Last Liquid Time 23:30 Last Solid Date 05/31/20 Last Solid Time 14:00 Labs Last 48hrs: Laboratory Results - last 48 hr 06/01/20 07:18 Urine HCG, Qual Negative Vitals: Temperature 97.5 F L 06/01/20 07:23 Temperature Source Temporal Artery S can 06/01/20 07:23 Pulse Rate 68 06/01/20 07:23 Pulse Rhythm 06/01/20 07:28 Pulse Strength 3+ Normal 06/01/20 07:28 Respiratory Rate 18 06/01/20 07:23 Blood Pressure 140/89 06/01/20 07:23 Blood Pressure Sharon n 106 06/01/20 07:23 Pulse Oximetry 100 06/01/20 07:23 Oxygen Delivery Me thod 06/01/20 07:28 Exam: Pre-Anes Outpt Exam: alert, oriented x 3, clear to auscultation bilaterally and regular rate & rhythm Cardiac Studies: No Data to Display
[2020-06-01 10:30] VITALS: BP 123/65; PULSE 86; RESP 16; TEMP 36.6; O2SAT 100
--- NOTE | 2020-06-01 10:35 | P.OP_ITS ---
Operative Report Date of procedure: June 01, 2020 Pre-op Diagnosis: Menorrhagia Post-op Diagnosis: Menorrhagia Procedure Done: Hysteroscopy with endometrial ablation with NovaSure, Paracervical block Specimens removed/disposition: None Surgeon: Edgardo Johnson Patient Financial Representative: None Anesthesia: MAC and Other (Paracervical block) Estimated blood loss (mL): 10 IV fluids (mL): 1,100 Complications: None Findings: First-degree uterine prolapse under anesthesia. No palpable masses noted. Normal-appearing endometrial cavity. Both tubal ostia visualized. No submucosal masses noted. No intracavitary masses noted. Brief History: Patient is a 34-year-old 3, para 2-1-0-3 with an LMP of 05/09/2020 who presented to the office on 03/03/2020 as a referral from Dr. Younger due to heavy bleeding. She reports that her periods have been slowly worsening ovary several years but became significantly worse since December. She states she typically will bleed for 5 to 7 days with 4 to 5 days being heavy. She changes the menstrual cup every hour with half dollar size clots are bigger at times present. She had used control pills in the past but did not like them due to making her heart race. She had an ultrasound performed which was normal. In office hysteroscopy was performed with no polyps or fibroids noted. Endometrial biopsy was negative for cancer or precancerous injuries. Due to the bleeding, she is presenting for endometrial ablation. Procedure: The patient was taken to the operating room where IV sedation was started. She was prepped and draped in the usual sterile fashion in the dorsal supine p osition with legs in Roladno style stirrups. Sequential compression boots had been placed prior to starting the case. Patient had voided just before coming to the operating room. Exam under anesthesia was performed and the patient was noted to have first- degree uterine prolapse. A weighted speculum was placed in the vagina and the cervix was grasped with a single-tooth tenaculum. A paracervical block was performed with a total of 10 mL of 2% lidocaine with epinephrine used. The cervix was serially dilated until a operative hysteroscope could be passed. Crystalloid solution was used as a distention media. The endometrial cavity was inspected and appeared normal. Using the NovaSure sound, endometrial cavity length was measured at 4.5 cm. The NovaSure device was inserted and device was deployed. The device was moved up and down and left and right until no further with adjustment occurred. Uterine width was measured at 4.6 cm. Settings were entered in the NovaSure machine and wattage was set at [address]. Cavity integrity check was performed and integrity confirmed. Device was then activated. Total treatment time was 1 minute 52 seconds. Device was removed. The tenaculum was removed and there was minimal bleeding from the tenaculum site. Patient tolerated the procedure well. Sponge and needle counts were correct. DRAINS: None POSTOPERATIVE STATUS: The patient was transferred to the recovery room in satisfactory condition DISPOSITION: Discharge to home when criteria was met. FOLLOWUP APPOINTMENT: Followup appointment had been scheduled on 06/16/2020 in my office. MEDICATIONS: Tramadol 50 mg 1 to 2 tablets every 6 hours as needed for pain, #15, 0 refills May use [id number] ibuprofen as needed for pain May resume usual home medications.
[2020-06-01] MEDS: ondansetron 2 mg/ML SDV 2 mL 4 MG IVP (10:45)
--- NOTE | 2020-06-01 10:57 | SUR.PHASEII ---
10:45 Patient medicated for nausea.
[2020-06-01 11:00] VITALS: BP 112/62; PULSE 70; RESP 18; O2SAT 97
--- NOTE | 2020-06-01 14:11 | ANE.PACU2 ---
Inpatient post-anesthesia follow up: Airway intact: Yes Vital signs: Temperature 97.9 F Pulse Rate 70 Respiratory Rate 18 Blood Pressure 112/62 Pulse Oximetry 97 Oxygen Delivery Me thod Room Air Oxygen Flow Rate Fraction of Inspir ed Oxygen Hydration adequate: Yes Nausea and vomiting: No Pain level: 2 Mental status: Baseline
== END 2020-06-01 11:25 | disposition home or self-care (01) ==
PROVIDERS: PCP Electrodiagnostic Medicine; Visit Provider Obstetrics & Gynecology
PROC: 0U598ZZ Destruction of Uterus, Via Natural or Artificial Opening Endoscopic (ICD-10-PCS; CPT 58563; principal; 2020-06-01 08:30)
DX: N92.0 Excessive and frequent menstruation with regular cycle (principal); E66.01 Morbid (severe) obesity due to excess calories; Z68.38 Body mass index [BMI] 38.0-38.9, adult; F41.9 Anxiety disorder, unspecified
CPT/HCPCS: 58563; 12345; 36415; 81025; 84703; 85025; 96374; J1100; J1885; J2250; J2405; J2704; J3010; J7030

== ENCOUNTER → 2022-10-02 09:34 | Outpatient (BNVA) | payer BC, SELFPAY | PROVIDERS: PCP Clinical Nurse Specialist Adult Health; Visit Provider Clinical Nurse Specialist Adult Health | DX: Z00.00 Encounter for general adult medical examination without abnormal findings (principal) | CPT/HCPCS: 80053; 80061; 84443; 85025 ==

== ENCOUNTER → 2023-02-07 15:45 | Outpatient (BNVA) | payer BC, SELFPAY | PROVIDERS: PCP Clinical Nurse Specialist Adult Health; Visit Provider Nurse Practitioner Family | DX: J06.9 Acute upper respiratory infection, unspecified (principal); H66.93 Otitis media, unspecified, bilateral; J32.9 Chronic sinusitis, unspecified | CPT/HCPCS: 87426 ==

== ENCOUNTER 2023-11-28 11:25 | Outpatient (CLI) | payer BC, SELFPAY ==
--- NOTE | 2023-11-28 11:33 | XRR_ITS ---
PROCEDURE INFORMATION: Exam: XR Left Shoulder Exam date and time: 11/28/2023 11:55 AM Age: 38 years old Clinical indication: Injury or trauma; Blunt trauma (contusions or hematomas); Injury date: 6 months ago; Injury details: Fall/left shoulder pain x 6 months, radiates down arm; Additional info: Rotator cuff inpingement, decrease rom TECHNIQUE: Imaging protocol: Radiologic exam of the left shoulder. Views: 2 or more views. COMPARISON: CR XR chest 2V* [id number] 11/28/2021 11:44 AM FINDINGS: Bones/joints: Normal. No fracture or dislocation. No acute osseous or joint abnormality. Soft tissues: Normal. XR/XR shoulder LT min 2V* [id number] IMPRESSION: No acute findings.
== END 2023-11-28 11:26 | disposition home or self-care (01) ==
PROVIDERS: PCP Clinical Nurse Specialist Adult Health; Visit Provider Clinical Nurse Specialist Adult Health
DX: M75.42 Impingement syndrome of left shoulder (principal)
CPT/HCPCS: 73030

== ENCOUNTER 2023-12-10 10:13 | Outpatient (CLI) | payer BC, SELFPAY ==
--- NOTE | 2023-12-10 10:15 | CT_ITS ---
WS: [id number] CT LEFT SHOULDER, NONCONTRAST HISTORY: left shoulder pain with decreased ROM after a fall Technique: All CT scans at [facility] use at least one of these dose optimization techniques: automated exposure control; mA and/or kV adjustment per patient size (includes targeted exams where dose is matched to clinical indication); or iterative reconstruction. DLP: 457.02 mGy.cm COMPARISON: Radiograph 11/28/2023 Normal AC joint. No significant bony hypertrophy. Glenohumeral joint is normal. No fracture or displa cement. Normal appearance of the clavicle. No soft tissue abnormalities. No atrophy of the rotator cuff muscles. No effusions. LEFT lung apex is clear. CT/CT shoulder LT wo con* [id number] IMPRESSION: Negative CT LEFT shoulder. No acute findings.
== END 2023-12-10 10:14 | disposition home or self-care (01) ==
LOC: RAD 10:13
PROVIDERS: PCP Clinical Nurse Specialist Adult Health; Visit Provider Clinical Nurse Specialist Adult Health
DX: M75.42 Impingement syndrome of left shoulder (principal)
CPT/HCPCS: 73200

== ENCOUNTER 2024-07-08 10:30 | Emergency (ER) | payer BC, SELFPAY ==
[2024-07-08 10:32] VITALS: BP 149/89; PULSE 90; RESP 24; TEMP 36.7; O2SAT 99; BMI 40.3
[2024-07-08 11:31] LABS: Basophils % 0.3 %; Eosinophils # 0.2 10^3/uL (0.0-0.8); Eosinophils % 1.2 %; Hematocrit 48.3 % (36-47); Lymphocytes # 1.8 10^3/uL (0.8-4.8); Lymphocytes % 14.5 %; Mean Corpuscular HGB Conc 32.7 g/dL (30-55); Mean Corpuscular Hemoglobin 27.7 pg (27-33); Mean Corpuscular Volume 84.6 fl (85-98); Monocytes # 0.4 10^3/uL (0.2-0.9); Monocytes % 3.3 %; Neutrophils # 10.17 10^3/uL (1.8-7.7); Neutrophils % 80.4 %; Nucleated Red Blood Cells % 0 %; Platelet Count 239 10^3/cmm (157-399); Red Blood Count 5.71 10^6/uL (3.85-5.65); Red Cell Distribution Width 12.1 % (12.1-15.1); White Blood Count 12.66 10^3/uL (3.29-11.43)
[2024-07-08 11:38] VITALS: BP 150/84; PULSE 88; O2SAT 98
--- NOTE | 2024-07-08 11:39 | W.ED.ABDPA2 ---
HPI - Abdominal Pain General: Chief Complaint: Abdominal Pain Stated Complaint: extreme pain right side Time Seen by Provider: 07/08/24 10:54 Source: patient Mode of arrival: ambulatory Limitations: no limitations History of Present Illness: Patient is a nice 39-year-old female presents to ED today with complaint of right upper quadrant pain that began fairly suddenly after she awoke this morning. She is status postcholecystectomy in 2019. She states following her cholecystectomy she did require ERCP after she began developing similar right upper quadrant pains and had elevated LFTs. She states she was subsequently transferred to [facility] and during ERCP they told her that her duct was inflamed as he most likely recently had passed a CBD stone. Patient states she has not had any issues since 2019 until this morning. She has felt nauseous. She states when pain did start she felt diaphoretic and clammy. She states pain radiates into her back. No history of kidney stones. She is not having any urinary symptoms. MD elicited complaint: abdominal pain Pertinent past history: none Onset (ago): hour(s) Pain Consistency: constant Location: RUQ Severity: moderate Quality: stabbing and sharp Radiation: none Migration to: no migration Exacerbating factors: nothing Relieving factors: nothing Associated Symptoms: Reports diarrhea and nausea; Denies chills, dysuria, fever(s) and vomiting Related Data Previous Rx's ?Medication ?Instructions ?Recorded sertraline 50 mg tablet 50 mg PO DAILY #90 tabs 11/28/23 hydrocodone 5 mg-acetaminophen 325 1 tab PO Q6H PRN pain #14 tabs 07/08/24 mg tablet ondansetron 4 mg disintegrating 4 mg PO Q8H PRN nausea and 07/08/24 tablet vomiting #14 tabs Allergies Allergy/AdvReac Type Severity Reaction Status Date / Time No Known Allergies Allergy Verified 07/08/24 10:32 Review of Systems Const: Denies: fever(s), chills, body aches, fatigue or malaise Card: Denies: chest pain Resp: Denies: dyspnea GI: Reports: abdominal pain, nausea and diarrhea; Denies: vomiting : Denies: flank pain, difficulty voiding, dysuria, urinary frequency, urinary urgency or urinary hesitancy Musc: Denies: neck pain, back pain, extremity pain, joint swelling or joint redness Skin/Breast: Denies: rash Neuro: Denies: headache(s), numbness in extremities, weakness in extremities, sensory changes or dizziness PFS ED PFSH: Medical History Morbid obesity due to excess calories Anxiety Hydrocephalus in [employer] shunt-placed shortly after . Cannot have MRIs. Surgical History History of shoulder surgery ruptured bicep tendon and a plate was inserted S/P endometrial ablation (06/01/20) Hysteroscopy with endometrial ablation with NovaSure. Performed by Dr. Johnson at [facility] in [place], [place] S/P dilation and curettage (~2003) S/P wisdom tooth extraction S/P [employer] shunt (~03/1985) H/O elbow surgery (~03/2018) Left elbow surgery?[facility]. S/P laparoscopic cholecystectomy (~06/2019) Dr. Crane at [facility]. Family History Father Hypertension Grandmother Diabetes Paternal Hypertension Maternal and Paternal Breast cancer Maternal Grandfather Diabetes Maternal Hypertension Maternal Social History Smoking and tobacco/nicotine status: never used tobacco/nicotine Alcohol intake: never Substance/Drug Use: never Physical Exam Const: COMMON NORMALS: no acute distress, patient oriented x3, no limitations, alert and well nourished GENERAL APPEARANCE: cooperative NUTRITIONAL APPEARANCE: obese ORIENTATION/CONSCIOUSNESS: Yes awake, Yes oriented to person, Yes oriented to place and Yes oriented to time Eye: COMMON NORMALS: no scleral icterus Resp: COMMON NORMALS: normal respiratory effort and clear to auscultation bilaterally AUSCULTATION: clear to auscultation bilaterally Cardio: COMMON NORMALS: regular rate and regular rhythm RATE: regular rate RHYTHM: regular rhythm GI: COMMON NORMALS: Normal to inspection, nondistended, normoactive bowel sounds present, Soft to palpation, No hepatosplenomegaly present and no masses INSPECTION: Yes normal to inspection AUSCULTATION: Yes normoactive bowel sounds PALPATION: Yes Soft to palpation, Yes Tenderness to palpation present (GI) (RUQ), No Guarding due to palpation present (GI), No Rigid due to palpation and Yes No hepatosplenomegaly present Back/Pelvis: COMMON NORMALS: thoracic and lumbar spine normal to inspection and no thoracic nor lumbar tenderness OTHER: radiation to back from RUQ Extremity: GENERAL: Yes normal exam except as noted Neuro: COMMON NORMALS: patient oriented x3, moves all extremities, no focal motor deficits, no sensory deficits noted and gait normal SENSORIUM/ORIENTATION: Yes alert, Yes oriented to person, Yes oriented to place and Yes oriented to time Skin: COMMON NORMALS: no rashes or lesions noted GENERAL SKIN EXAM: no rashes or lesions noted Course Vital Signs: Vital signs: Vital Signs Temperature 98.0 F 07/08/24 10:32 Pulse Rate 66 07/08/24 13:30 Respiratory Rate 24 H 07/08/24 10:32 Blood Pressure 126/75 07/08/24 13:30 Pulse Oximetry 95 07/08/24 13:30 Oxygen Delivery Me thod Room Air 07/08/24 13:30 MDM - Abdominal Pain Medical Decision Making Patient is a nice 39-year-old female presents to ED today with complaint of right upper quadrant pain. She is status post cholecystectomy performed back in 2019. She arrives with stable vital signs. She is not tachycardic or febrile. Blood work showing a minor white count of 12.6. She does have some mild elevations to her AST/ALT/alk phos. She has a normal t. bili. Lipase is 78. UA not overwhelmingly suspicious for infection. No UTI like symptoms on history. Will culture. Kidneys look normal on CT imaging. Remainder of CT abdomen/pelvis unremarkable. She does have hepatic steatosis. Could be the cause for her mildly elevated LFTs. Discussed possibility of formed CBD stone although I think this would be unlikely. Acute cholangitis unlikely given her lack of fever/chills, minimal white count and normal t. bili. Other etiologies include sphincter of oddi dysfunction, postcholecystectomy syndrome, etc. Patient cannot have MRCP due to [employer] shunt with metal tip. Spoke to Dr. Velasco who agrees with plan for close observation outpatient and having CMC/CMP/lipase repeated outpatient in 1-2 days. They will have PCP follow up with these. Strict return to ED precautions discussed. Medical Records I reviewed the patient's medical records. Lab Data I reviewed the patient's lab results. 07/08/24 11:25 07/08/24 11:25 Labs/Radiology: Radiology Impressions Abdomen/Pelvis CT 07/08/24 12:30 IMPRESSION: 1. No acute findings in the abdomen/pelvis. 2. Cholecystectomy. 3. Hepatic steatosis. 4. Small RIGHT ovarian cyst measuring 15 mm. 5. Normal appendix 6. Tiny esophageal hernia. Laboratory Results WBC 12.66 10^3/uL (3.29-11.43) H 07/08/24 11:25 RBC 5.71 10^6/uL (3.85-5.65) H 07/08/24 11:25 Hgb 15.80 g/dL (11.27-16.99) 07/08/24 11:25 Hct 48.3 % (36-47) H 07/08/24 11:25 MCV 84.6 fl (85-98) L 07/08/24 11:25 MCH 27.7 pg (27-33) 07/08/24 11:25 MCHC 32.7 g/dL (30-55) 07/08/24 11:25 RDW 12.1 % (12.1-15.1) 07/08/24 11:25 Plt Count 239 10^3/cmm (157-399) 07/08/24 11:25 MPV 10.0 fL (7.4-10.4) 07/08/24 11:25 Neut % (Auto) 80.4 % 07/08/24 11:25 Lymph % (Auto) 14.5 % 07/08/24 11:25 Burt % (Auto) 3.3 % 07/08/24 11:25 Eos % (Auto) 1.2 % 07/08/24 11:25 Baso % (Auto) 0.3 % 07/08/24 11:25 Neut # (Auto) 10.17 10^3/uL (1.8-7.7) H 07/08/24 11:25 Lymph # (Auto) 1.8 10^3/uL (0.8-4.8) 07/08/24 11:25 Burt # (Auto) 0.4 10^3/uL (0.2-0.9) 07/08/24 11:25 Eos # (Auto) 0.2 10^3/uL (0.0-0.8) 07/08/24 11:25 Baso # (Auto) 0.0 10^3/uL (0.0-0.1) 07/08/24 11:25 Nucleated RBC % (auto) 0 % 07/08/24 11:25 Nucleated RBCs # 0.0 /100WBC 07/08/24 11:25 Sodium 138 mmol/L (136-145) 07/08/24 11:25 Potassium 3.8 mmol/L (3.5-5.1) 07/08/24 11:25 Chloride 100 mmol/L (98-107) 07/08/24 11:25 Carbon Dioxide 25 mmol/L (22-29) 07/08/24 11:25 Anion Gap 16.8 (5-19) 07/08/24 11:25 BUN 11 mg/dL (6-20) 07/08/24 11:25 Creatinine 0.9 mg/dL (0.5-0.9) 07/08/24 11:25 GFR Calculation 69.7 mL/min (90-130) L 07/08/24 11:25 Glucose 111 mg/dL (65-115) 07/08/24 11:25 Calculated Osmolality 286 mOsm/kg (285-295) 07/08/24 11:25 Calcium 9.5 mg/dL (8.5-10.5) 07/08/24 11:25 Total Bilirubin 0.8 mg/dL (0.15-1.2) 07/08/24 11:25 AST 86 U/L (0-32) H 07/08/24 11:25 ALT 44 U/L (0-33) H 07/08/24 11:25 Alkaline Phosphatase 141 U/L (35-105) H 07/08/24 11:25 Total Protein 8.2 g/dL (6.6-8.7) 07/08/24 11:25 Albumin 4.5 g/dL (3.5-5.2) 07/08/24 11:25 Globulin 3.7 g/dL (1.3-4.6) 07/08/24 11:25 Lipase 78 U/L (13-60) H 07/08/24 11:25 HCG, Qual Negative (Negative) 07/08/24 11:25 Urine Color Yellow (Yellow) 07/08/24 11:42 Urine Appearance Cloudy (CLEAR) A 07/08/24 11:42 Urine pH 5.0 (5-7) 07/08/24 11:42 Ur Specific Byron 1.026 (1.005-1.030) 07/08/24 11:42 Urine Protein Trace (Negative) A 07/08/24 11:42 Urine Glucose (UA) Negative (Normal) 07/08/24 11:42 Urine Ketones Trace (Negative) 07/08/24 11:42 Urine Blood Negative (Negative) 07/08/24 11:42 Urine Nitrate Negative (Negative) 07/08/24 11:42 Urine Bilirubin Negative (Negative) 07/08/24 11:42 Urine Urobilinogen 1.0 mg/dL (Negative) 07/08/24 11:42 Ur Leukocyte Esterase 1+ (Negative) A 07/08/24 11:42 Urine RBC 5-10 /hpf (0-2) H 07/08/24 11:42 Urine WBC 0-4 /hpf (0-5) H 07/08/24 11:42 Ur Squamous Epith Cells None /hpf (0-5) 07/08/24 11:42 Amorphous Sediment Not Reportable 07/08/24 11:42 Urine Bacteria None /hpf (NONE) 07/08/24 11:42 Urine Mucus None /hpf 07/08/24 11:42 All radiology interpretation(s) finalized by discharge Discharge Plan Discharge Patient Disposition: Home Clinical Impression: Abdominal pain, RUQ, Transaminitis Condition: Stable Prescriptions: New hydrocodone-acetaminophen 5-325 mg tablet 1 tab PO Q6H PRN (Reason: pain) Qty: 14 0RF ondansetron 4 mg tablet,disintegrating 4 mg PO Q8H PRN (Reason: nausea and vomiting) Qty: 14 0RF No Action sertraline 50 mg tablet 50 mg PO DAILY Qty: 90 3RF Discharge Orders: Discharge ED (Routine); Ordered 07/08/24 Ordered By: Lianne Malone Referrals: Rene Brady [employer] [Primary Care Provider] - Patient Instructions: Abdominal Pain (ED), Opioid Safety, Pain Management Activity Restrictions/Additional Instructions: As we discussed, please monitor symptoms closely. You need to return to the emergency department for worsening pain, repetitive episodes of vomiting, any yellowing to your skin or eyes, fevers, generally feeling worse or unwell, or any other concerns you may have. I will write you outpatient labs to have your liver enzymes rechecked. We will have these faxed to your PCP for review. Print Language: Hebrew Coding Level of Care Code ED Alteration Inspector for Candelaria Kaminski
[2024-07-08 11:47] LABS: Alanine Aminotransferase 44 U/L (0-33); Albumin Level 4.5 g/dL (3.5-5.2); Alkaline Phosphatase 141 U/L (35-105); Anion Gap 16.8 (5-19); Aspartate Amino Transferase 86 U/L (0-32); Blood Urea Nitrogen 11 mg/dL (6-20); Calcium 9.5 mg/dL (8.5-10.5); Carbon Dioxide 25 mmol/L (22-29); Chloride 100 mmol/L (98-107); Creatinine Clr Calc Pharmacy 99.9697; Globulin 3.7 g/dL (1.3-4.6); Glomerular Filtration Rate 69.7 mL/min (90-130); Glucose 111 mg/dL (65-115); Lipase 78 U/L (13-60); Osmolality Calculated 286 mOsm/kg (285-295); Potassium 3.8 mmol/L (3.5-5.1); Sodium 138 mmol/L (136-145); Total Bilirubin 0.8 mg/dL (0.15-1.2); Total Protein 8.2 g/dL (6.6-8.7)
[2024-07-08 11:48] LABS: HCG, Serum Qual Negative (Negative)
[2024-07-08 11:53] LABS: Bilirubin Urine Negative (Negative); Blood Urine Negative (Negative); Glucose Urine UA Negative (Normal); Ketones Urine Trace (Negative); Leukocyte Esterase Urine 1+ (Negative); Nitrate Urine Negative (Negative); Protein Urine Trace (Negative); Specific Gravity, Urine 1.026 (1.005-1.030); Urine Appearance Cloudy (CLEAR); Urine Color Yellow (Yellow)
[2024-07-08 12:02] LABS: UA Manual Slide Review YES; UA Slide Review UA Slide Review Perf
[2024-07-08 12:05] LABS: Add Urine Microscopic? YES
[2024-07-08 12:07] LABS: Add Urine Culture? No; WBC Urine 0-4 /hpf (0-5)
[2024-07-08 12:30] VITALS: BP 130/81; PULSE 84; O2SAT 96
--- NOTE | 2024-07-08 12:30 | CT_ITS ---
WS: [id number] CT ABDOMEN PELVIS TECHNIQUE: Contrast-enhanced CT of the abdomen and pelvis with coronal and sagittal reformatted images. CLINICAL INFORMATION: R sided abdominal pain COMPARISON: None. DLP: 988.[address] scans at [facility] use at least one of these dose optimization techniques: automated exposure control; mA and/or kV adjustment per patient size (includes targeted exams where dose is matched to clinical indication); or iterative reconstruction. FINDINGS: Hepatic steatosis. Cholecystectomy clips. Normal portal vein and splenic vein. Normal spleen. Normal pancreatic parenchymal enhancement. Celiac and SMA are patent. Normal caliber abdominal aorta. Normal appendix. Adrenal glands are normal. Normal renal parenchymal enhancement. No hydronephrosis. Lung bases are well aerated. Tiny esophageal hiatal hernia. Normal sigmoid colon. No free fluid in the abdomen or pelvis. Small RIGHT ovarian cyst measuring [address]/CT abdomen pelvis w con* [id number] IMPRESSION: 1. No acute findings in the abdomen/pelvis. 2. Cholecystectomy. 3. Hepatic steatosis. 4. Small RIGHT ovarian cyst measuring 15 mm. 5. Normal appendix 6. Tiny esophageal hernia.
[2024-07-08] MEDS: iohexol 350 mg/mL 500 mL Btl (per mL) IV (12:52)
[2024-07-08 13:30] VITALS: BP 126/75; PULSE 66; O2SAT 95
[2024-07-08 14:07] VITALS: BP 129/95; PULSE 62; O2SAT 96
== END 2024-07-08 14:08 | disposition home or self-care (01) ==
PROVIDERS: Emergency Provider Physician Assistant; PCP Clinical Nurse Specialist Adult Health
DX: R10.31 Right lower quadrant pain (principal); R74.01 Elevation of levels of liver transaminase levels
CPT/HCPCS: 36415; 74177; 80053; 81001; 83690; 84703; 85025; 87086; 99285

== ENCOUNTER → 2024-07-10 13:30 | Outpatient (BNVA) | payer BC, SELFPAY | PROVIDERS: PCP Clinical Nurse Specialist Adult Health; Visit Provider Clinical Nurse Specialist Adult Health | DX: R74.01 Elevation of levels of liver transaminase levels (principal); R10.11 Right upper quadrant pain; K80.20 Calculus of gallbladder without cholecystitis without obstruction | CPT/HCPCS: 80053; 83690; 85025 ==

== ENCOUNTER → 2024-11-19 07:10 | Outpatient (BNVA) | payer BC, SELFPAY | PROVIDERS: PCP Clinical Nurse Specialist Adult Health; Visit Provider Podiatrist Foot & Ankle Surgery | DX: S93.401A Sprain of unspecified ligament of right ankle, initial encounter (principal); S92.154A Nondisplaced avulsion fracture (chip fracture) of right talus, initial encounter for closed fracture; W10.9XXA Fall (on) (from) unspecified stairs and steps, initial encounter | CPT/HCPCS: 73610 ==

== ENCOUNTER → 2025-03-02 13:34 | Outpatient (BNVA) | payer BC, SELFPAY | PROVIDERS: PCP Clinical Nurse Specialist Adult Health; Visit Provider Podiatrist Foot & Ankle Surgery | DX: M79.672 Pain in left foot (principal); M79.671 Pain in right foot; M72.2 Plantar fascial fibromatosis | CPT/HCPCS: 73630 ==